=== PATIENT | female | born 1990 | race African-American/Black ===

== ENCOUNTER 2019-05-17 01:57 | Emergency (ER) | payer SELFPAY ==
[~2019-05-17] VITALS: Ht 167.6 cm; Wt 68.2 kg
[2019-05-17 01:58] VITALS: BP 139/65
[2019-05-17] MEDS ORDERED: MAGN296S68 PO (02:22)
--- NOTE | 2019-05-17 02:22 | PHYS DOC ---
Past Medical History Past Medical History: Asthma, Cancer Additional Past Medical Histor: CERVICAL CA Past Surgical History: No Surgical History Smoking Status: Current Every Day Smoker Alcohol Use: None Adult General Chief Complaint Chief Complaint: ABDOMINAL PAIN HPI HPI Patient is a 28 year old female with history of asthma and cervical cancer who presents via EMS with complaining of constipation. Patient states she did have a bowel movement for the last 3 days and tonight she felt pressure feeling in her abdomen needs to have a bowel movement but did not have a car to go to get any laxative and called 911. Patient denies nausea and vomiting, fever and chills, urinary symptoms, , abdominal distention. Review of Systems Review of Systems Constitutional: Denies fever or chills [] Eyes: Denies change in visual acuity, redness, or eye pain [] HENT: Denies nasal congestion or sore throat [] Respiratory: Denies cough or shortness of breath [] Cardiovascular: No additional information not addressed in HPI [] GI: Report s abdominal pain, constipation, denies nausea, vomiting, bloody stools or diarrhea [] : Denies dysuria or hematuria [] Musculoskeletal: Denies back pain or joint pain [] Integument: Denies rash or skin lesions [] Neurologic: Denies headache, focal weakness or sensory changes [] Endocrine: Denies polyuria or polydipsia [] All other systems were reviewed and found to be within normal limits, except as documented in this note. Current Medications Current Medications Current Medications Medications (Trade) Dose Ordered Sig/Yo Start Time Stop Time Status Last Admin Dose Admin Bisacodyl (Dulcolax Tab) 10 mg 1X ONCE 05/17/19 03:00 05/17/19 02:28 DC 05/17/19 02:24 10 MG Allergies Allergies Allergies Coded Allergies Type Severity Reaction Last Updated Verified No Known Drug Allergies 05/17/19 No Physical Exam Physical Exam Constitutional: Well developed, well nourished, mild distress, non-toxic appearance. [] HENT: Normocephalic, atraumatic. Eyes: PERRLA, EOMI, conjunctiva normal, no discharge. [] Neck: Normal range of motion, no tenderness, supple, no stridor. [] Cardiovascular:Heart rate regular rhythm, no murmur [] Lungs & Thorax: Bilateral breath sounds clear to auscultation [] Abdomen: Bowel sounds normal, soft, no tenderness, no masses, no pulsatile masses. Patient refuses rectal exam. Skin: Warm, dry, no erythema, no rash. [] Back: No tenderness, no CVA tenderness. [] Extremities: No tenderness, no cyanosis, no clubbing, ROM intact, no edema. [] Neurologic: Alert and oriented X 3, no focal deficits noted. [] Psychologic: Affect anxious, judgement normal, mood normal. [] Current Patient Data Vital Signs Vital Signs Date Time Temp Pulse Resp B/P (MAP) Pulse Ox O2 Delivery O2 Flow Rate FiO2 05/17/19 01:58 97.3 99 14 139/65 (89) 96 Room Air 97.3 EKG EKG [] Radiology/Procedures Radiology/Procedures [] Course & Med Decision Making Course & Med Decision Making Evaluation of patient in ER showed 28-year-old female patient brought in by EMS because of constipation and unable to go to the pharmacy to get medication because of lack of recall. Patient was actually seen in ER and did not have IV line or x-ray of her abdomen and just wanted the medication to help her to have a bowel movement. Patient had unremarkable abdominal exam. Dulcolax was given in ER and patient was advised to take [id number] MiraLAX and magnesium citrate as needed for constipation. Dragon Disclaimer Dragon Disclaimer This electronic medical record was generated, in whole or in part, using a voice recognition dictation system. Departure Departure Impression: Primary Impression: Constipation Additional Impression: Anxiety about health Disposition: 01 HOME, SELF-CARE (At 0230) Condition: STABLE Referrals: NO PCP (PCP) Patient Instructions: Constipation, Adult Additional Instructions: Drink plenty of liquids Follow-up with your primary care physician in 3-5 days Return to ER if not getting better Take tkrw-kqa-[id number] MiraLAX or mineral oil as needed for constipation Thank you for visiting [facility]. We appreciate you trusting us with your care. If any additional problems come up don't hesitate to return to visit us. Please follow up with your primary care provider so they can plan additional care if needed and know about the problem that you had. If symptoms worsen come back to the Emergency Department. Any concerning symptoms that start such as chest pain, shortness of air, weakness or numbness on one side of the body, running high fevers or any other concerning symptoms return to the ER. Scripts Magnesium Citrate (MAGNESIUM CITRATE) 296 Ml Solution 296 ML PO ONCE, #296 ML Drink half a bottle every 12 hours as needed for constipation Prov: JERRY MARINO MD 05/17/19 Problem Qualifiers Primary Impression: Constipation Constipation type: unspecified constipation type Qualified Codes: K59.00 - Constipation, unspecified JERRY MARINO MD May 17, 2019 02:22
[2019-05-17] MEDS: BISACODYL 5 MG TABLET.DR. PO ONE (02:24)
== END 2019-05-17 02:26 | disposition home or self-care (01) ==
LOC: ER 01:57
DX: K59.00 Constipation, unspecified (principal); F41.9 Anxiety disorder, unspecified; R10.9 Unspecified abdominal pain; J45.909 Unspecified asthma, uncomplicated; F17.200 Nicotine dependence, unspecified, uncomplicated; Z85.9 Personal history of malignant neoplasm, unspecified
CPT/HCPCS: 99283